=== PATIENT | female | born 1990 | race Two or more races ===

== ENCOUNTER 2020-10-02 09:41 | Observation (INO) | payer MEDICAID ==
[2020-10-02] MEDS ORDERED: PREN1TAB71 OR (10:44)
== END 2020-10-02 10:52 | disposition home or self-care (01) ==
LOC: LDRP 09:43
PROVIDERS: ADMIT Obstetrics & Gynecology; ATTEND Obstetrics & Gynecology
DX: O40.2XX0 Polyhydramnios, second trimester, not applicable or unspecified (principal); O09.212 Supervision of pregnancy with history of pre-term labor, second trimester; Z3A.25 25 weeks gestation of pregnancy
CPT/HCPCS: 59025; 81002; G0378

== ENCOUNTER 2020-10-09 07:46 | Observation (INO) | payer MEDICAID ==
[~2020-10-09 07:46] MED LIST: PREN1TAB71 OR
== END 2020-10-09 11:55 | disposition home or self-care (01) ==
LOC: LDRP 10:48
PROVIDERS: ADMIT Obstetrics & Gynecology; ATTEND Obstetrics & Gynecology
DX: O60.02 Preterm labor without delivery, second trimester (principal); Z3A.26 26 weeks gestation of pregnancy
CPT/HCPCS: 59025; 81002; 94760; G0378

== ENCOUNTER 2020-10-17 19:42 | Observation (INO) | payer MEDICAID ==
[~2020-10-17] VITALS: Ht 160 cm; Wt 103.9 kg
== END 2020-10-17 21:38 | disposition home or self-care (01) ==
LOC: LDRP 19:42
PROVIDERS: ADMIT Obstetrics & Gynecology; ATTEND Obstetrics & Gynecology
DX: O40.2XX0 Polyhydramnios, second trimester, not applicable or unspecified (principal); O60.02 Preterm labor without delivery, second trimester; Z3A.27 27 weeks gestation of pregnancy
CPT/HCPCS: 59025; 76815; 81002; G0378

== ENCOUNTER 2020-10-24 09:00 | Observation (INO) | payer MEDICAID | END 2020-10-24 10:33 | disposition home or self-care (01) | LOC: LDRP 09:00 | PROVIDERS: ADMIT Obstetrics & Gynecology; ATTEND Obstetrics & Gynecology | DX: O41.8X31 Other specified disorders of amniotic fluid and membranes, third trimester, fetus 1 (principal); Z3A.28 28 weeks gestation of pregnancy | CPT/HCPCS: 59025; 76817; 76818; 81002; G0378 ==

== ENCOUNTER 2020-10-31 09:50 | Observation (INO) | payer MEDICAID ==
[~2020-10-31] VITALS: Ht 160 cm; Wt 103.0 kg
== END 2020-10-31 14:02 | disposition home or self-care (01) ==
LOC: LDRP 09:50
PROVIDERS: ADMIT Specialist; ATTEND Specialist
DX: O40.3XX0 Polyhydramnios, third trimester, not applicable or unspecified (principal); O60.03 Preterm labor without delivery, third trimester; Z3A.29 29 weeks gestation of pregnancy
CPT/HCPCS: 59025; 76818; 81002; G0378

== ENCOUNTER 2020-11-07 10:01 | Observation (INO) | payer MEDICAID ==
[2020-11-20] MEDS ORDERED: NIF10C PO (09:33)
== END 2020-11-07 11:22 | disposition home or self-care (01) ==
LOC: LDRP 10:01
PROVIDERS: ADMIT Specialist; ATTEND Specialist
DX: O60.03 Preterm labor without delivery, third trimester (principal); O40.3XX0 Polyhydramnios, third trimester, not applicable or unspecified; Z3A.30 30 weeks gestation of pregnancy
CPT/HCPCS: 59025; 76818; 81002; G0378

== ENCOUNTER 2020-11-14 08:05 | Observation (INO) | payer MEDICAID ==
[~2020-11-14] VITALS: Ht 160 cm; Wt 103.4 kg
== END 2020-11-14 09:25 | disposition home or self-care (01) ==
LOC: LDRP 08:05
PROVIDERS: ADMIT Obstetrics & Gynecology; ATTEND Obstetrics & Gynecology
DX: O40.3XX0 Polyhydramnios, third trimester, not applicable or unspecified (principal); Z3A.31 31 weeks gestation of pregnancy
CPT/HCPCS: 59025; 76818; 81002; G0378

== ENCOUNTER 2020-11-20 08:00 | Observation (INO) | payer MEDICAID ==
[2020-11-20] MEDS ORDERED: NIF10C GT (09:33)
== END 2020-11-20 09:40 | disposition home or self-care (01) ==
LOC: LDRP 08:00
PROVIDERS: ADMIT Obstetrics & Gynecology; ATTEND Obstetrics & Gynecology
DX: O60.03 Preterm labor without delivery, third trimester (principal); O40.3XX0 Polyhydramnios, third trimester, not applicable or unspecified; Z3A.32 32 weeks gestation of pregnancy
CPT/HCPCS: 59025; 76818; 81002; 94760; G0378

== ENCOUNTER 2020-11-23 08:03 | Observation (INO) | payer MEDICAID ==
[~2020-11-23 08:03] MED LIST changes: +NIF10C GT
== END 2020-11-23 09:20 | disposition home or self-care (01) ==
LOC: LDRP 08:03
PROVIDERS: ADMIT Obstetrics & Gynecology; ATTEND Obstetrics & Gynecology
DX: O40.3XX0 Polyhydramnios, third trimester, not applicable or unspecified (principal); Z3A.32 32 weeks gestation of pregnancy
CPT/HCPCS: 59025; 76817; 76818; 81002; G0378

== ENCOUNTER 2020-11-27 10:53 | Observation (INO) | payer MEDICAID ==
[~2020-11-27 10:53] MED LIST changes: -NIF10C GT; +NIF10C PO
== END 2020-11-27 12:17 | disposition home or self-care (01) ==
LOC: LDRP 10:53
PROVIDERS: ADMIT Obstetrics & Gynecology; ATTEND Obstetrics & Gynecology
DX: O40.3XX0 Polyhydramnios, third trimester, not applicable or unspecified (principal); O60.03 Preterm labor without delivery, third trimester; Z3A.33 33 weeks gestation of pregnancy
CPT/HCPCS: 59025; 76818; 81002; 94760; G0378

== ENCOUNTER 2020-11-30 09:10 | Observation (INO) | payer MEDICAID | END 2020-11-30 10:59 | disposition home or self-care (01) | LOC: LDRP 09:10 | PROVIDERS: ADMIT Specialist; ATTEND Specialist | DX: O60.03 Preterm labor without delivery, third trimester (principal); Z3A.33 33 weeks gestation of pregnancy | CPT/HCPCS: 59025; 76817; 76818; 81002; 94760; G0378 ==

== ENCOUNTER 2020-12-04 08:21 | Observation (INO) | payer MEDICAID | END 2020-12-04 09:00 | disposition home or self-care (01) | LOC: LDRP 08:21 | PROVIDERS: ADMIT Obstetrics & Gynecology; ATTEND Obstetrics & Gynecology | DX: O60.03 Preterm labor without delivery, third trimester (principal); O26.893 Other specified pregnancy related conditions, third trimester; R60.0 Localized edema; Z3A.34 34 weeks gestation of pregnancy | CPT/HCPCS: 59025; 76817; 76818; 81002; G0378 ==

== ENCOUNTER 2020-12-07 08:36 | Observation (INO) | payer MEDICAID | END 2020-12-07 09:40 | disposition home or self-care (01) | LOC: LDRP 08:36 | PROVIDERS: ADMIT Obstetrics & Gynecology; ATTEND Obstetrics & Gynecology | DX: O60.03 Preterm labor without delivery, third trimester (principal); Z3A.34 34 weeks gestation of pregnancy | CPT/HCPCS: 59025; 76817; 76818; 81002; 94760; G0378 ==

== ENCOUNTER 2020-12-12 09:39 | Observation (INO) | payer MEDICAID | END 2020-12-12 12:00 | disposition home or self-care (01) | LOC: LDRP 09:39 | PROVIDERS: ADMIT Obstetrics & Gynecology; ATTEND Obstetrics & Gynecology | DX: O60.03 Preterm labor without delivery, third trimester (principal); O40.3XX0 Polyhydramnios, third trimester, not applicable or unspecified; Z3A.35 35 weeks gestation of pregnancy | CPT/HCPCS: 59025; 76817; 76818; 81002; G0378 ==

== ENCOUNTER 2021-01-02 15:12 | Observation (INO) | payer MEDICAID | END 2021-01-02 17:13 | disposition home or self-care (01) | LOC: LDRP 15:12 | PROVIDERS: ADMIT Specialist; ATTEND Specialist | DX: O36.63X0 Maternal care for excessive fetal growth, third trimester, not applicable or unspecified (principal); O26.853 Spotting complicating pregnancy, third trimester; O26.893 Other specified pregnancy related conditions, third trimester; N89.8 Other specified noninflammatory disorders of vagina; Z3A.38 38 weeks gestation of pregnancy | CPT/HCPCS: 59025; 76818; 81002; G0378 ==

== ENCOUNTER 2021-01-04 01:34 | Inpatient (IN) | payer MEDICAID ==
[~2021-01-04] VITALS: Ht 160 cm; Wt 110.2 kg
[~2021-01-04 01:34] MED LIST changes: -NIF10C PO
[2021-01-04] MEDS ORDERED: PHISODERM TOP SOLN 240ML BTL TOP PRN (02:15)
[2021-01-04] MEDS ORDERED: DERMOPLAST 60ML BOTTLE TOP PRN (02:15)
[2021-01-04] MEDS ORDERED: BUTORPHANOL TARTRATE 2 MG/1 ML VIAL IV PRN ×2 (02:15)
[2021-01-04] MEDS ORDERED: LIDOCAINE 2%HCL (LOCAL ANESTH.) INJ 20ML MDV IJ PRN (02:15)
[2021-01-04] MEDS ORDERED: PROMETHAZINE HCL 25 MG/ML 1ML IV PRN (02:15)
[2021-01-04] MEDS ORDERED: LACTATED RINGER'S 1,000 ML IV SCH (02:15)
[2021-01-04] MEDS ORDERED: WITCH HAZEL-GLYCERIN PAD TOP PRN (02:15)
[2021-01-04] MEDS ORDERED: PENICILLIN G POT 5MIL/D5 50ML 50 ML IV ONE (02:30)
[2021-01-04 02:45] LABS: Basophils # (auto) 0.1 10 ^3/uL (0-0.2); Basophils % (auto) 0.4 % (0.0-2.0); Eosinophils # (auto) 0.1 10 ^3/uL (0-0.8); Eosinophils % (auto) 0.9 % (0.0-7.0); Hematocrit 36.9 % (36.0-46.0); Hemoglobin 12.8 g/dL (12.2-16.2); Lymphocytes # (auto) 2.9 10 ^3/uL (0.4-5.4); Lymphocytes % (auto) 19.2 % (10.0-50.0); Mean Corpuscular Hemoglobin 31.9 pg (28.0-32.0); Mean Corpuscular Hgb Conc. 34.8 g/dL (32.0-36.0); Mean Corpuscular Volume 91.6 fL (80.0-100.0); Monocytes # (auto) 1.1 10 ^3/uL (0-1.3); Monocytes % (auto) 7.4 % (0.0-12.0); Neutrophils # (auto) 10.9 10 ^3/uL (1.6-8.6); Neutrophils % (auto) 72.1 % (37.0-80.0); Red Blood Cells 4.03 10^6/uL (4.0-5.20); Red Cell Distribution Width 13.2 % (11.8-14.3); White Blood Cell 15.1 10^3/uL (4.4-10.8)
[2021-01-04 03:01] LABS: INR 0.9 (0.9-1.15); Partial Thromboplastin Time 23.4 sec (23.0-31.2)
[2021-01-04 03:07] LABS: Albumin 2.4 g/dL (3.4-5.0); Calcium 8.7 mg/dL (8.5-10.1)
[2021-01-04 03:08] LABS: Urine Bacteria MOD /hpf (None Seen); Urine Blood Negative /uL (Negative); Urine Hyaline Cast FEW /lpf (0 - 2); Urine Mucus FEW (None Seen); Urine Specific Gravity 1.013 (1.001-1.035); Urine WBC 68 /hpf (0 - 5)
[2021-01-04 03:09] LABS: Alcohol, Urine < 3.0 mg/dL (0-10); Amphetamine Screen, Urine NEGATIVE (NEGATIVE); Barbiturate Scree,Urine NEGATIVE (NEGATIVE); Benzodiazephine Screen, Urine NEGATIVE (NEGATIVE); Cannabinoid Screen, Urine NEGATIVE (NEGATIVE); Cocaine Screen, Urine NEGATIVE (NEGATIVE); Opiate Scree,Urine NEGATIVE (NEGATIVE); Phencyclidine Screen, Urine NEGATIVE (NEGATIVE)
[2021-01-04 03:11] LABS: BUN/Creatinine Ratio 15.8; Bilirubin, Total 0.3 mg/dL (0.2-1.0); Total Protein 6.5 g/dL (6.4-8.2)
[2021-01-04] MEDS ORDERED: LACT. RINGERS/OXYTOCIN 20UNITS 500 ML IV ONE ×2 (03:30→04:00)
[2021-01-04] MEDS ORDERED: fentaNYL CITRATE 100 MCG/2 ML VL ONE (04:50)
[2021-01-04] MEDS ORDERED: LIDOCAINE 2%HCL (LOCAL ANESTH.) INJ 20ML MDV ONE (04:51)
[2021-01-04] MEDS ORDERED: ONDANSETRON HCL 4 MG/2 ML VIAL ONE (04:51)
[2021-01-04] MEDS ORDERED: ceFAZolin 1GM/50ML 50 ML IV ONE (05:43)
[2021-01-04] MEDS ORDERED: LIDOCAINE 2%HCL (LOCAL ANESTH.) INJ 10ml MDV IJ ONE (06:00)
[2021-01-04] MEDS ORDERED: fentaNYL CITRATE 100 MCG/2 ML VL IV ONE (06:00)
[2021-01-04] MEDS ORDERED: ONDANSETRON HCL 4 MG/2 ML VIAL IV ONE (06:00)
[2021-01-04] MEDS ORDERED: MIDAZOLAM HCL 2MG/2ML 2ml VIAL (1mg/ml) ONE (06:07)
[2021-01-04] MEDS ORDERED: ePHEDrine SULFATE 50 MG/ML AMP IV ONE (06:15)
[2021-01-04] MEDS ORDERED: PENICILLIN G POTASSIUM 2,500,000 UNITS in D5W 5% 50 ML IV SCH (06:30)
[2021-01-04 07:00] VITALS: BP 133/79
[2021-01-04] MEDS ORDERED: ONDANSETRON HCL 4 MG/2 ML VIAL IV PRN (07:15)
[2021-01-04] MEDS ORDERED: METOCLOPRAMIDE HCL 5MG/ml INJ 2ml VIAL IV PRN (07:15)
[2021-01-04] MEDS ORDERED: HYDROmorphone HCL 2 MG/ML VL IV PRN (07:15)
[2021-01-04 11:00] VITALS: BP 127/74
[2021-01-04] MEDS ORDERED: ACETAMINOPHEN 325 MG TAB PO PRN (11:30)
[2021-01-04] MEDS: DOCUSATE SOD 100 MG CAP PO SCH (12:43)
[2021-01-04] MEDS: IBUPROFEN 600 MG TAB PO PRN ×4 (12:43→21:07)
[2021-01-04 15:00] VITALS: BP 133/69
[2021-01-04 19:25] VITALS: BP 127/66
[2021-01-04 22:45] VITALS: BP 127/66
[2021-01-05] MEDS: IBUPROFEN 600 MG TAB PO PRN ×3 (01:23→08:28)
[2021-01-05] MEDS: DOCUSATE SOD 100 MG CAP PO SCH ×2 (01:26→08:28)
[2021-01-05 04:00] VITALS: BP 123/74
[2021-01-05 06:06] LABS: RPR Non Reactive (Non Reactive)
[2021-01-05 07:30] VITALS: BP 123/66
[2021-01-05] MEDS ORDERED: DOCUSATE CALCIUM 240 MG CAP PO SCH (10:00)
== END 2021-01-05 11:17 | disposition home or self-care (01) | DRG 560 ==
LOC: LDRP 01:34 → OBSVTOIN 02:12 → LDRP 02:13
PROVIDERS: ADMIT Specialist; ATTEND Specialist
PROC: 0DQP0ZZ Repair Rectum, Open Approach (ICD-10-PCS; 2021-01-04)
PROC: 10E0XZZ Delivery of Products of Conception, External Approach (ICD-10-PCS; principal; 2021-01-04 05:56)
DX: O70.3 Fourth degree perineal laceration during delivery (principal); Z20.822 Contact with and (suspected) exposure to COVID-19; Z37.0 Single live birth; Z3A.38 38 weeks gestation of pregnancy
CPT/HCPCS: 36415; 59025; 59409; 80053; 80307; 81001; 81002; 85025; 85610; 85730; 86592; 86850; 86900; 86901; 87426; 94760; 96360; 96361; 96365; 96366; 96374; G0378; J0690; J2001; J2250; J2405; J2540; J2590; J7060